=== PATIENT | female | born 1995 | race Caucasian/White ===

== ENCOUNTER → 2018-01-28 | Emergency (ER) | payer OTHER ==
[~2018-01-28] VITALS: Ht 157.5 cm; Wt 61.2 kg
== END | disposition home or self-care (01) ==
LOC: ER 08:49 → CPU-OBS 09:07
DX: R07.89 Other chest pain (principal)
CPT/HCPCS: 93005; G0378; G0379; 93306

== ENCOUNTER 2023-01-11 12:45 | Inpatient (IN) | payer OTHER ==
[~2023-01-11] VITALS: Ht 160 cm; Wt 72.6 kg
== END 2023-01-13 12:25 | disposition home or self-care (01) | DRG 880 ==
LOC: ER 12:45 → MEDI 22:15 → SEC-K 22:15 → MEDI 01-12 00:26
PROVIDERS: ADMIT Specialist; ATTEND Specialist
PROC: BW28ZZZ Computerized Tomography (CT Scan) of Head (ICD-10-PCS; 2023-01-11)
PROC: B24BYZZ Ultrasonography of Heart with Aorta using Other Contrast (ICD-10-PCS; 2023-01-11)
PROC: BW38ZZZ Magnetic Resonance Imaging (MRI) of Head (ICD-10-PCS; principal; 2023-01-12)
DX: F44.5 Conversion disorder with seizures or convulsions (principal)
CPT/HCPCS: 70544